=== PATIENT | female | born 1955 | race Caucasian/White ===

== ENCOUNTER 2017-02-16 10:56 | Day surgery (SDC) | payer OTHER ==
[2017-02-16] VITALS (14 sets, daily range): BP systolic 73–151; BP diastolic 45–103; PULSE 65–82; RESP 11–16; O2SAT 98–100
[~2017-02-16] VITALS: Ht 160 cm; Wt 54.6 kg
[~2017-02-16 10:56] MED LIST: ALBU18HF INH; AZEL137S11 NS; BECL8.7A6 INHALATION; BENZ200C44 PO; BIOT10004 PO; CALC1CAP26 PO; CYA1000I IM; DIAZ5TAB3 PO; EPIN0.3P2 IJ; FLUT9.9S NS; Lactated Ringer's 1,000 ML IV SCH; METO25TA99 PO; MULT-1018 PO; OLP.1OP5 AFFECT_EYE
[2017-02-16] MEDS ORDERED: Lactated Ringer's 1,000 ML IV ONE (11:26)
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
[2017-02-16] MEDS ORDERED: Bupivacaine Liposome 1.3% 20 mL Inj ONE (11:58)
[2017-02-16] MEDS ORDERED: HYDROmorphone 1 mg/mL Inj IVPUSH PRN (13:00)
[2017-02-16] MEDS ORDERED: fentaNYL-PF 50 mCg/mL 2 mL Inj IVPUSH PRN (13:00)
[2017-02-16] MEDS ORDERED: EPHEDrine Sulfate 50 mg/mL Inj IVPUSH PRN (13:00)
[2017-02-16] MEDS ORDERED: Ondansetron 2 mg/mL 2 mL Inj IVPUSH PRN (13:00)
[2017-02-16] MEDS ORDERED: Dexamethasone 4 mg/mL Inj IVPUSH PRN (13:00)
[2017-02-16] MEDS ORDERED: Lactated Ringer's 1,000 ML IV SCH (13:00)
[2017-02-16] MEDS ORDERED: MetoCLOpramide 5 mg/mL 2 mL Inj IVPUSH PRN (13:00)
[2017-02-16] MEDS ORDERED: Phenylephrine 10,000 mCg/mL Inj IVPUSH PRN (13:00)
[2017-02-16] MEDS ORDERED: Lactated Ringer's 500 ML IV PRN (13:00)
[2017-02-16] MEDS ORDERED: Bupivacaine Liposome 1.3% 20 mL Inj INFILTRATE ONE (13:06)
[2017-02-16] MEDS ORDERED: Bupivacaine-MPF 0.25%/EPI 30 mL Inj INJ ONE (13:06)
[2017-02-16] MEDS ORDERED: Phenylephrine/NS-PF 100 mCg/mL 5 mL Syringe IVPUSH ONE (13:25)
--- NOTE | 2017-02-16 14:50 | OP ---
[address] [address] OPERATIVE REPORT PATIENT: ARIANNE CHASE : 1955 MR#: [id number] ADMIT: 02/16/2017 JOB ID: [id number] DATE OF SURGERY: 02/16/2017 PREOPERATIVE DIAGNOSIS(ES): Symptomatic external hemorrhoid. POSTOPERATIVE DIAGNOSIS(ES): Symptomatic external hemorrhoid; rectal polyps. PROCEDURE PERFORMED: Examination under anesthesia, external and internal hemorrhoidectomy x1; resection of rectal polyps x2. SURGEON: Patricia Contreras MD LINE APPLIANCE ASSEMBLER: CATHERINE Alejandra HISTORY OF PRESENT ILLNESS: This is a 61-year-old woman with a history of a large painful thrombosed hemorrhoid, which slowly improved but remained symptomatic. For this reason, she desired excision. FINDINGS: 1. External hemorrhoidal skin tag with a small internal hemorrhoidal column extending proximally, completely excised, at the right anterolateral position. 2. Two tiny rectal polyps were found 2 cm proximal to the dentate line at the left posterolateral position, these were excised and sent for pathology. DESCRIPTION OF PROCEDURE: The patient was brought to the operating room and placed in a supine position. General anesthesia was induced. A warming blanket was placed. She was repositioned into high lithotomy position. The operative field was prepped and draped in a sterile fashion. A pause was performed to confirm the correct patient, procedure, site and side. A digital rectal examination was performed and was normal. Examination under anesthesia with a Coello retractor revealed two tiny polyps, 3 mm and 4 mm in size, located 2 cm proximal to the dentate line at the left posterolateral position. These were excised with a electrocautery and sent for permanent pathology. The external hemorrhoidal skin tag at the right anterolateral position was examined and found to be confluent with an internal hemorrhoidal column. It was resected with a knife and the defect was closed with a running 3-0 chromic stitch. Hemostasis was achieved. The perianal area was then injected with 0.25% Marcaine, and after this, 20 mL of liposomal bupivacaine was infused into the subcutaneous tissue surrounding the anus. An ABD pad was placed. The patient was awakened from general anesthesia and taken to the postoperative care unit in good condition. ESTIMATED BLOOD LOSS: 2 mL. SPECIMENS: External hemorrhoid and rectal polyps as noted above. COMPLICATIONS: None. MTDD
--- NOTE | 2017-02-16 15:39 | PCM.ANEP1 ---
Post Anesthesia Phase 1 PACU Phase 1 Assessment Vital Signs Vital Signs Date Time Temp Pulse Resp B/P Pulse Ox O2 Delivery O2 Flow Rate FiO2 02/16/17 14:20 36.3 74 16 141/81 98 Room Air 02/16/17 14:18 36.3 71 16 141/81 99 Room Air 02/16/17 14:11 36.2 72 16 127/75 98 Room Air 02/16/17 13:55 67 14 131/83 98 Room Air 02/16/17 13:45 82 16 134/82 100 Room Air 02/16/17 13:44 75 14 129/73 100 Room Air 02/16/17 13:40 36.1 70 11 87/49 99 Simple Mask 8 02/16/17 13:38 72 11 87/45 Simple Mask 8 02/16/17 13:34 68 11 93/49 99 Simple Mask 8 02/16/17 13:31 69 11 89/52 100 Simple Mask 8 02/16/17 13:29 65 11 88/54 100 Simple Mask 8 02/16/17 13:25 36.3 72 12 73/48 100 Simple Mask 02/16/17 11:26 36.5 68 14 151/103 98 Room Air Anesthetic Administered: GA Level of Alertness: Awake, talking Pain: No Nausea or Vomiting: No Airway Device: Oralpharangeal Airway Oxygen Delivery: Room Air Lungs: Normal Air Movement Yonny Ortiz MD Feb 16, 2017 15:39
--- NOTE | 2017-02-16 15:40 | PCM.ANEP2 ---
Post Anesthesia Evaluation ASA/CMS Post Anesthesia VS in Patient's Normal Range?: Yes Resp Stable; Airway Patent?: Yes CV Function & Hydration Stable: Yes Mental Status Recovered?: Yes Pain control Satisfactory?: Yes N/V Control Satisfactory?: Yes Yonny Ortiz MD Feb 16, 2017 15:40
--- NOTE | 2017-02-18 15:32 | PATH ---
SURGICAL PATHOLOGY Attending Physician:Patricia Contreras MD CASE STATUS: Signed Out PATIENT NAME: ARIANNE CHASE PID: [id number] : 1955 DATE COLLECTED:02/16/2017 00:00 SPECIMEN: 1: Rectum, Biopsy 2: Hemorrhoids CLINICAL HISTORY: EXTERNAL HEMORRHOIDS 1). LEFT POSTERIOR LATERAL RECTAL POLYP 2). RIGHT ANTERIOR LATERAL HEMORRHOID. FINAL DIAGNOSIS: 1. Left Posterior Lateral Rectal Polyp: Anal tag. Negative for dysplasia and malignancy. 2. Right Anterior Lateral Hemorrhoid: Hemorrhoid tissue identified. Negative for dysplasia and malignancy. ICD10 K64 GROSS DESCRIPTION: The specimen is received in two formalin filled containers labeled with the patient's name. 1). The specimen is sublabeled "left posterior lateral rectal polyp" and consists of 2 portions of tissue which aggregate to 0.3 x 0.3 x 0.7 CM. The specimen is entirely submitted in cassette 1A. 2). The specimen is sublabeled "right anterior lateral hemorrhage column" and consists of 3 kovacs brown portions of tissue which aggregate to 1.5 x 1.3 x 0.7 CM. The specimen is inked blue. 4 field representatives director sections are submitted in cassette 2A. 02/17/2017 [facility] MICRO DESCRIPTION: Please see diagnosis. ICD-9 CODES: CPT CODES: 1: 07534 2: 28598 Electronically Signed Out Nisha Atkins MD [facility] Pathology [facility], [place] [address] Technical component performed at [facility], [address] [place] [address] Ave[address], [place], [address]
== END 2017-02-16 23:59 | disposition home or self-care (01) ==
LOC: SAS 10:56
PROVIDERS: ATTEND Surgery
DX: K64.4 Residual hemorrhoidal skin tags (principal); K64.8 Other hemorrhoids; K62.89 Other specified diseases of anus and rectum; I10 Essential (primary) hypertension; G47.33 Obstructive sleep apnea (adult) (pediatric); M94.0 Chondrocostal junction syndrome [Tietze]; Z86.010 Personal history of colon polyps; Z85.828 Personal history of other malignant neoplasm of skin; Z87.891 Personal history of nicotine dependence
CPT/HCPCS: 46230; 46255; J2370; J7120